=== PATIENT | female | born 2000 | race African-American/Black ===

== ENCOUNTER 2022-01-20 23:59 | Emergency (ER) | payer BC, OTHER ==
[~2022-01-20] VITALS: Ht 165.1 cm; Wt 99.8 kg
[2022-01-21 00:02] VITALS: BP 140/85
--- NOTE | 2022-01-21 02:08 | NUR ---
Call no show in lobby or outside.
--- NOTE | 2022-01-21 02:15 | NUR ---
PATIENT LEFT WITHOUT BEING SEEN BY DR. Sellers. NO FURTHER CARE PROVIDED FOR PATIENT.
== END 2022-01-21 02:14 | disposition left against medical advice (07) ==
LOC: MED 23:59
DX: Z53.21 Procedure and treatment not carried out due to patient leaving prior to being seen by health care provider (principal)